=== PATIENT | male | born 1980 | race Caucasian/White ===

== ENCOUNTER 2024-08-04 11:32 | Day surgery (SDC) | payer BC ==
[~2024-08-04 11:32] MED LIST: LIDOCAINE 1% (10MG/ML) FOR IV START INTRADERMA PRN
[2024-08-04] MEDS: IV FLUID CONTINUATION 1,000 ML IV ONE (11:44)
[2024-08-04 11:51] VITALS: TEMP 97.2
[2024-08-04] MEDS: LACTATED RINGERS 1,000 ML IV SCH (11:55)
[2024-08-04] MEDS ORDERED: PROPOFOL 10 MG/ML 20 ML VIAL IV ONE (13:18)
[2024-08-04] MEDS ORDERED: GLUCAGON 1 MG/ML VIAL ONE (13:18)
--- NOTE | 2024-08-04 13:20 | P.GSHP ---
History of Present Illness H&P Date: 08/04/24 Chief Complaint: Family history of colorectal cancer This a 43-year-old male presented for colonoscopy. Patient's 47-year-old brother was recent diagnosed with colon cancer. Patient presents today for screening colonoscopy. Past Medical History Past Medical History: No Reported History Additional Past Medical History / Comment(s): brother recently had colon cancer History of Any Multi-Drug Resistant Organisms: None Reported Additional Past Surgical History / Comment(s): wisdom teeth Past Anesthesia/Blood Transfusion Reactions: No Reported Reaction Smoking Status: Current every day smoker - Past Family History Brother(s) Family Medical History: Cancer Additional Family Medical History / Comment(s): colon Medications and Allergies Home Medications Medication Instructions Recorded Confirmed Type No Known Home Medications 08/01/24 08/04/24 History Allergies Allergy/AdvReac Type Severity Reaction Status Date / Time No Known Allergies Allergy Verified 08/04/24 11:43 Surgical - Exam Vital Signs Temp Pulse Resp BP Pulse Ox 97.2 F L 68 16 103/66 99 08/04/24 11:50 08/04/24 11:50 08/04/24 11:50 08/04/24 11:50 08/04/24 11:50 - General well developed, well nourished, no distress - Eyes PERRL - ENT normal pinna - Neck no masses - Respiratory normal expansion - Cardiovascular Rhythm: regular - Abdomen Abdomen: soft, non tender Assessment and Plan Plan: Family history of colon cancer. Will perform screening colonoscopy.
--- NOTE | 2024-08-04 13:40 | P.OP ---
Date of Procedure: 08/04/24 Preoperative Diagnosis: Family history of colon cancer Screening colonoscopy Postoperative Diagnosis: Left colon polyp Procedure(s) Performed: Colonoscopy Anesthesia: MAC Surgeon: Reed Lyman Pathology: other (Colon polyp) Condition: stable Disposition: PACU Description of Procedure: The patient was placed on the operative table in the lateral position. He received IV sedation. Digital rectal exam was performed. This revealed no abnormalities. The flexible colonoscope was then placed patient anus passed throughout the entire colon. The ileocecal valve w not visualized due to stool in the colon. The visualized right colon appeared normal. The transverse colon appeared normal. In the descending colon there is a small sessile polyp seen. This removed with a cold forcep. The sigmoid colon and rectum appeared normal. Scope withdrawn for the patient.
[2024-08-04 14:18] VITALS: BP 124/72; PULSE 70; RESP 20
== END 2024-08-04 14:15 | disposition home or self-care (01) ==
LOC: ORWHC2ENDO 11:32
PROVIDERS: ATTEND Surgery
CPT/HCPCS: 45380; 88305